=== PATIENT | female | born 1960 | race Caucasian/White ===

== ENCOUNTER 2022-10-01 09:00 | Outpatient (REF) | payer OTHER, SELFPAY ==
--- NOTE | 2022-10-01 16:03 | PFT_ITS ---
INDICATION: Dyspnea. SPIROMETRY: FEV1 to FVC of 65% with an FEV1 of 2.88 L, which is 120% predicted and FVC of 4.46 L, which is 142% predicted. There was a trend response to bronchodilators noted. To note, the [id number] decreased to 38% predicted suggesting small airways disease. Maximum voluntary ventilation 97% predicted. LUNG VOLUMES: Total lung capacity 142% predicted with a residual volume of 132% predicted. DIFFUSION CAPACITY: DLCO 93% predicted. COMPARISONS: None. INTERPRETATION: There is an obstructive ventilatory defect consistent with mild COPD. No significant response to bronchodilators noted. There is also significant evidence of small airways disease suggesting the possibility of asthma-COPD overlap syndrome. Normal maximum voluntary ventilation noted. Lung volumes do demonstrate significant air trapping and also significant hyperinflation due to the COPD. The patient has a normal diffusion capacity. No previous PFTs to compare. Clinical correlation warranted. MD MARCIA Perez/INESSA / [id number]
== END 2022-10-01 09:01 | disposition home or self-care (01) ==
LOC: HO.RESP 09:00
PROVIDERS: PCP Internal Medicine; Visit Provider Hospitalist
DX: J45.40 Moderate persistent asthma, uncomplicated (principal)
CPT/HCPCS: 94060; 94727; 94729

== ENCOUNTER 2022-10-10 13:57 | Outpatient (REF) | payer OTHER, SELFPAY ==
[2022-10-10 14:16] LABS: MANUAL DIFF FLAG NO
[2022-10-10 14:25] LABS: Basophils Percent Auto 0.6 % (0-2); Eosinophils Absolute Auto 0.4 X10*3/uL (0.0-0.4); Eosinophils Percent Auto 5.7 % (0-4); Hematocrit 39.6 % (37.0-47.0); Hemoglobin 13.5 g/dl (12.0-16.0); Imm Gran Abs Auto 0.02 X10*3/uL (0.00-0.03); Imm Gran Pct Auto 0.3 % (0.0-0.4); Lymphocytes Absolute Auto 1.9 X10*3/uL (1.2-4.9); Lymphocytes Percent Auto 30.3 % (20-40); Mean Corpuscular HGB Conc 34.1 g/dl (31.0-35.0); Mean Corpuscular Hemoglobin 31.5 pg (27.0-33.0); Mean Corpuscular Volume 92.5 fL (80.0-98.0); Mean Platelet Volume 9.3 fL (9.4-12.3); Monocytes Absolute Auto 0.4 X10*3/uL (0.1-1.2); Neutrophils Absolute Auto 3.6 x10*3/uL (2.0-8.3); Neutrophils Percent Auto 57.1 % (45-73); Platelet Count 309 X10*3/uL (160-400); Red Blood Count 4.28 X10*6/uL (4.20-5.50); Red Cell Distribution Width 12.2 % (11.0-16.0); White Blood Count 6.4 X10*3/uL (4.8-10.8)
[2022-10-10 15:06] LABS: Erythrocyte Sedimentation Rate 5 MM/HR (0-20)
[2022-10-12 14:17] LABS: Alpha 1 Anti-trypsin 131 mg/dL (83-199)
== END 2022-10-10 13:58 | disposition home or self-care (01) ==
LOC: HO.LAB 13:57
PROVIDERS: PCP Internal Medicine; Visit Provider Hospitalist
DX: J44.9 Chronic obstructive pulmonary disease, unspecified (principal); J45.40 Moderate persistent asthma, uncomplicated
CPT/HCPCS: 36415; 82103; 82785; 85025; 85652; 86003

== ENCOUNTER → 2023-01-10 14:47 | Outpatient (BNVA) | payer OTHER, SELFPAY | PROVIDERS: PCP Internal Medicine; Visit Provider Hospitalist | DX: Z13.89 Encounter for screening for other disorder (principal) ==

== ENCOUNTER 2023-07-09 09:13 | Outpatient (AMB) | payer OTHER, SELFPAY ==
--- NOTE | 2023-07-09 09:21 | MHC.OFFVIS ---
Intake Vital Signs 07/09/23 09:22 Height 5 ft 2 in Weight 135 lb 9.349 oz BMI 24.8 BP 118/70 Blood Pressure Location Lt brachial Position Sitting Pulse 76 Pulse Source Pulse Oximeter Pulse Oximetry (%) 96 Oxygen Delivery Method Room Air Intake Visit Reasons: Asthma [place] Consultant Required: No Allergies amoxicillin Allergy (Severe, Verified 07/09/23 09:25) Rash HPI HPI Comments History of Present Illness Details The patient is a 62 year-old woman with known history of asthma in addition to allergies. The patient has followed closely with a local dye line operator. Her asthma had been in good control. However during the spring season she felt worsening respiratory symptoms. About a month ago she started developing significant chest tightness and wheezing. She was not responding to her respiratory therapy. She did call for advice over we can and she was recommended to go to the ER. She ended up going to the [facility] ER. There she had a chest x-ray that was personally by me. She appeared to have some hyperinflation of the lungs in addition to slight blunting of the right recess. The patient was treated with prednisone and she felt better. She was then placed on Advair and started developing irritation of her mouth. She also developed some ulcerations. So she was switched over to Symbicort 80/4.5 and seems to be tolerating that better. Although she still has concerns. I did provide her with a spacer in the office in order for her to minimize her upper respiratory adverse effects. We also talked about other additional therapy such as singular that she had using the past which will be a steroid sparing agent hopefully allow her to decrease the amount of steroid she is currently taking. The patient has other triggers including reflux disease. She is monitoring closely her diet. She does not like to take too many medications. In addition to that she does have a postnasal drip. She does have nasal sprays at home. 10/10/2022 the patient is here for a pulmonary follow-up visit. Overall she is doing better on the Symbicort. She is also trying to use a spacer. She does not use it all the time. The patient has been exercising regularly. We did review her pulmonary function studies together. She appears to have a mild fixed obstruction suggesting uncontrolled asthma versus the progression to mild COPD. She is a lifelong nonsmoker. The patient has significant small airways disease suggesting the severity of her asthma. On previous blood work she did have some degree of eosinophilia. 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 Based on her degree of obstruction I do believe that adding a long-acting muscarinic antagonist in the morning will help her with her airway obstruction. The patient also should be taking singular. She was questioning the adverse effects. Did reassure her that is well tolerated. She will monitor for any mood changes. 01/12/2023 The patient is here for a pulmonary follow up visit. The patient is complaing of increasing cough and chest tightness. Has been feeling like this for 4-5 days. She almost went to the ED. She has been using her inhalers frequently. The patient does not have a nebulizer. She does not like to take prednisone. Denies any sick contacts. Today she is feeling a little better. Again, we talked about her significant allergies including to mold. She really would be a great candidate for Dupixent with her elevated IgE and eosinophils. i did provide her with imformation. 07/09/2023 the patient is here for pulmonary follow-up visit. The patient is feeling a lot better. Back in January she had an exacerbation or breathing. She would was treated with a course of antibiotics and she felt better. She is not having to use Symbicort every day now. She is back to his baseline. The patient is also taking the singular daily. Respiratory power she does not have any limitations or respiratory them as well. She has no x-rays or laboratories to review. Her eosinophils have been elevated before we talked about potential biologics. But at this point she does not require them. The patient will call if she has any worsening symptoms however. In the meantime her major issue is her significant arthritis. Has a hard time with her neck. She does take IgE for Motrin on a daily basis. I did encourage her not to do so talk to her primary care doctor about alternatives [facility] Medical History (Updated 07/09/23 @ 22:47 by Naeem Hanna MD) Asthma-COPD overlap syndrome Social History (Updated 06/04/22 @ 13:26 by JEAN CLAUDE Walter) Patient Tobacco Use Status: Never used Tobacco Review of Systems Const Denies fatigue Eyes Denies change in vision ENT Reports nasal congestion Card Denies chest pain Resp Denies chest congestion, Reports cough and Denies wheezing GI Reports dyspepsia and Reports heartburn Musc Reports no additional complaints Skin/Breast Denies rash Neuro Reports no additional complaints Endo Reports no additional complaints and Denies fatigue Aller/Immun Denies wheezing Physical Exam Vital Signs: Last Vital Signs Pulse 76 07/09/23 09:22 BP 118/70 07/09/23 09:22 Pulse Ox 96 07/09/23 09:22 Oxygen Delivery Method Room Air 07/09/23 09:22 BMI result Body Mass Index 24.8 Const General: comfortable HEENT Head: Yes normal to inspection Neck Neck: Yes normal visual inspection and Yes supple Chest Chest palpation & inspection: normal inspection of the chest Resp Auscultation: clear to auscultation bilaterally and no wheezes Cardio Rate: regular rate Rhythm: regular rhythm Heart sounds: S1 normal heart sound present, S2 normal heart sound present and Murmur heart sound present systolic II/ and at the base GI Inspection: Yes normal to inspection Skin General skin exam: no rashes or lesions noted Extrem General: Yes no clubbing, cyanosis or edema Assessment & Plan Assessment & Plan (1) Asthma: Code(s): J45.909 - Unspecified asthma, uncomplicated Qualifiers: Asthma complication type: uncomplicated Asthma persistence: persistent Asthma severity: severe Qualified Code(s): J45.50 - Severe persistent asthma, uncomplicated (2) GERD (gastroesophageal reflux disease): Code(s): K21.9 - Gastro-esophageal reflux disease without esophagitis Qualifiers: Esophagitis presence: without esophagitis Qualified Code(s): K21.9 - Gastro-esophageal reflux disease without esophagitis (3) Chronic allergic rhinitis: Code(s): J30.9 - Allergic rhinitis, unspecified Plan continue Symbicort 160/4.5 Nebulizer continue using a spacer continue Singulair consider starting long-acting muscarinic antagonist short-acting beta agonist as needed -Tolerates Xopenex best Will be an excellent candidate for Biologic therapy continue with reflux diet follow-up in 12 months unless she develops any new symptoms that will require an earlier evaluation Coding Level of Care Code Est Pt Level 4 (50739) Diagnoses Asthma J45.50 Asthma complication type: uncomplicated Asthma persistence: persistent Asthma severity: severe GERD (gastroesophageal reflux disease) K21.9 Esophagitis presence: without esophagitis Chronic allergic rhinitis J30.9 Time Spent (min) 18
[2023-07-09 09:22] VITALS: BP 118/70; PULSE 76; O2SAT 96; BMI 24.8
== END 2023-07-09 09:36 | disposition home or self-care (01) ==
PROVIDERS: PCP Internal Medicine; Visit Provider Hospitalist
DX: J45.50 Severe persistent asthma, uncomplicated (principal); K21.9 Gastro-esophageal reflux disease without esophagitis; J30.9 Allergic rhinitis, unspecified
CPT/HCPCS: 99214

== ENCOUNTER → 2023-07-09 09:13 | Outpatient (BNVA) | payer OTHER, SELFPAY | PROVIDERS: PCP Internal Medicine; Visit Provider Hospitalist | DX: J44.9 Chronic obstructive pulmonary disease, unspecified (principal) ==

== ENCOUNTER 2024-01-06 09:00 | Outpatient (AMB) | payer OTHER, SELFPAY ==
--- NOTE | 2024-01-06 08:38 | MHC.OFFVIS ---
Intake Vital Signs 01/06/24 09:07 Height 5 ft 2 in Weight 130 lb BMI 23.8 BP 110/64 Blood Pressure Location Rt brachial Position Sitting Pulse 81 Pulse Source Pulse Oximeter Pulse Oximetry (%) 93 Oxygen Delivery Method Room Air Intake Visit Reasons: Dyspnea, coughing, green sputum Ratoprinter Required: No Electron Gun Inspector: Electron Gun Inspector offered & declined Accompanied by: Self / Same As Patient Allergies amoxicillin Allergy (Severe, Verified 01/06/24 09:10) Rash flagyl Allergy (Severe, Uncoded 01/06/24 09:10) hives Medication List - Last Reconciled 01/06/24 by Maryam Andrade LPN budesonide-formoterol 160-4.5 mcg/actuation (Symbicort) 2 puffs inhalation BID cholecalciferol (vitamin D3) 25 mcg PO DAILY diltiazem HCl 120 mg PO DAILY levalbuterol HCl 1.25 mg (3 mL) inhalation BID levalbuterol tartrate 45 mcg/actuation 2 puffs inhalation Q6H PRN lorazepam 1 mg PO BEDTIME PRN montelukast 10 mg PO DAILY 30 days nebulizers As directed valacyclovir 1,000 mg PO DAILY PRN HPI Dyspnea, coughing, green sputum HPI Details Chary is pleasant 63 year old female, never smoker, with asthma COPD overlap syndrome, GERD and environmental allergies. At baseline, she is well controlled on symbicort, singulair and levalbuterol MDI/neb. Today she presents for a sick visit. She reports increased dyspnea with exertion, chest tightness, and productive cough with yellow to green sputum for the past 4-5 days. She has been using levalbuterol MDI multiple times per day with moderate effect. She has not had to use her nebulizer. Of note, she will be traveling out of country on Friday. [facility] Medical History (Updated 07/09/23 @ 22:47 by Naeem Hanna MD) Asthma-COPD overlap syndrome Social History (Updated 01/06/24 @ 09:12 by Maryam Andrade LPN) Patient Tobacco Use Status: Never used Tobacco Smoked in Last 30 Days: No Review of Systems Const Denies chills, Denies excessive sweating, Denies fever(s), Denies headache(s) and Denies night sweats Eyes Denies dry eyes, Denies irritation and Denies itchy eyes ENT Reports Normal hearing present, Denies headache(s), Denies nasal congestion, Denies nasal discharge, Denies post nasal drip and Denies sore throat Card Denies chest pain, Denies chest pain at rest, Denies chest pain with activity, Denies claudication, Denies leg edema, Denies dyspnea, Denies orthopnea and Denies paroxysmal nocturnal dyspnea Resp Denies chest congestion, Denies excessive phlegm production, Denies pain on inspiration, Denies pain with cough, Denies dyspnea, Denies stridor and Denies wheezing Musc Denies myalgias Neuro Reports Normal hearing present and Denies headache(s) Endo Denies excessive sweating William/Lymph Denies lymphadenopathy Aller/Immun Denies itchy eyes, Denies seasonal rhinorrhea and Denies wheezing Physical Exam Vital Signs: Last Vital Signs Pulse 81 01/06/24 09:07 BP 110/64 01/06/24 09:07 Pulse Ox 93 01/06/24 09:07 Oxygen Delivery Method Room Air 01/06/24 09:07 BMI result Body Mass Index 23.8 Const General: cooperative, healthy appearing, comfortable, no acute distress, well developed and alert Orientation/consciousness: patient oriented x3 Limitations: no limitations HEENT Head: Yes normal to inspection, Yes normocephalic and Yes atraumatic Ears: hearing grossly normal bilaterally and external ears normal Eyes General: appearance normal, both eyes and all related structures Eyelids: Yes eyelids normal Sclerae: sclerae normal EOM: EOMs intact bilaterally Neck Neck: Yes normal visual inspection and Yes no lymphadenopathy Lymphatic: no lymphadenopathy noted Chest Chest palpation & inspection: normal inspection of the chest Resp Effort & Inspection: normal respiratory effort, able to speak in complete sentences, no audible wheezes, no cough, no stridor, not tachypneic, no tripod positioning and no use of accessory muscles Auscultation: clear to auscultation bilaterally Cardio Jugular venous distension: no JVD Rate: regular rate Rhythm: regular rhythm Skin Other: warm, dry General skin exam: no rashes or lesions noted Neuro General: patient oriented x3 Cranial nerves: Yes Normal hearing present Cognition (Neuro): normal cognition Gait exam (Neuro): Normal gait present Extrem General: Yes normal to inspection, Yes capillary refill normal, Yes no clubbing, cyanosis or edema and Yes no pedal edema Psych Appearance: grossly normal and well kempt Speech and movement: Normal speech and movement present and Clear speech present Affect: normal affect Attitude: cooperative Thought process: Normal thought process present Thought content: Normal thought content present Insight: Good insight present (Psych) Judgement: Good judgement present (Psych) Assessment & Plan Assessment & Plan (1) Asthma-COPD overlap syndrome: Code(s): J44.9 - Chronic obstructive pulmonary disease, unspecified Plan Will treat bronchitic symptoms with azithromycin and recommended mucinex DM. Since patient going out of the country will give prescription for prednisone, she is aware when to use it if needed. Will refill levalbuterol MDI. All questions were answered and patient is in agreement of plan. Will follow up with Dr. Hanna for regularly scheduled appointment or sooner if needed. Medications: New azithromycin For 250 mg dose pack: take 500 mg today (day 1), then 250 mg for 4 days (days 2-5) PO 6 tabs 0RF levalbuterol tartrate 45 mcg/actuation 1 puff inhalation Q4-6H PRN 15 grams 3RF shortness of breath prednisone 40 mg (2 x 20 mg) PO DAILY 10 tabs 0RF Coding Level of Care Code Est Pt Level 3 (35120) Diagnoses Asthma-COPD overlap syndrome J44.9
[2024-01-06 09:07] VITALS: BP 110/64; PULSE 81; O2SAT 93; BMI 23.8
== END 2024-01-06 09:23 | disposition home or self-care (01) ==
PROVIDERS: PCP Internal Medicine; Visit Provider Nurse Practitioner Family
DX: J44.9 Chronic obstructive pulmonary disease, unspecified (principal)
CPT/HCPCS: 99213

== ENCOUNTER → 2024-01-06 09:00 | Outpatient (BNVA) | payer OTHER, SELFPAY | PROVIDERS: PCP Internal Medicine; Visit Provider Nurse Practitioner Family ==

== ENCOUNTER 2024-11-01 09:03 | Outpatient (AMB) | payer OTHER, SELFPAY ==
[2024-11-01 09:04] VITALS: BP 122/80; PULSE 81; O2SAT 99; BMI 24.6
--- NOTE | 2024-11-01 09:04 | A.OFFVIS_ITS ---
Vital Signs 11/01/24 09:04 Height 5 ft 2 in Weight 134 lb 7.712 oz BMI 24.6 BP 122/80 Blood Pressure Location Lt brachial Position Sitting Pulse 81 Pulse Source Doppler Pulse Oximetry (%) 99 Oxygen Delivery Method Room Air Intake Visit Reasons: Dyspnea Allergies amoxicillin Allergy (Severe, Verified 01/06/24 09:10) Rash flagyl Allergy (Severe, Uncoded 01/06/24 09:10) hives HPI Comments Details: The patient is a 63 year-old woman with known history of asthma in addition to allergies. The patient has followed closely with a local farmworker machine. Her asthma had been in good control. However during the spring season she felt worsening respiratory symptoms. About a month ago she started developing significant chest tightness and wheezing. She was not responding to her respiratory therapy. She did call for advice over we can and she was recommended to go to the ER. She ended up going to the [facility] ER. There she had a chest x-ray that was personally by me. She appeared to have some hyperinflation of the lungs in addition to slight blunting of the right recess. The patient was treated with prednisone and she felt better. She was then placed on Advair and started developing irritation of her mouth. She also developed some ulcerations. So she was switched over to Symbicort 80/4.5 and seems to be tolerating that better. Although she still has concerns. I did provide her with a spacer in the office in order for her to minimize her upper respiratory adverse effects. We also talked about other additional therapy such as singular that she had using the past which will be a steroid sparing agent hopefully allow her to decrease the amount of steroid she is currently taking. The patient has other triggers including reflux disease. She is monitoring closely her diet. She does not like to take too many medications. In addition to that she does have a postnasal drip. She does have nasal sprays at home. 10/10/2022 the patient is here for a pulmonary follow-up visit. Overall she is doing better on the Symbicort. She is also trying to use a spacer. She does not use it all the time. The patient has been exercising regularly. We did review her pulmonary function studies together. She appears to have a mild fixed obstruction suggesting uncontrolled asthma versus the progression to mild COPD. She is a lifelong nonsmoker. The patient has significant small airways disease suggesting the severity of her asthma. On previous blood work she did have some degree of eosinophilia. 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 Based on her degree of obstruction I do believe that adding a long-acting muscarinic antagonist in the morning will help her with her airway obstruction. The patient also should be taking singular. She was questioning the adverse effects. Did reassure her that is well tolerated. She will monitor for any mood changes. 01/12/2023 The patient is here for a pulmonary follow up visit. The patient is complaing of increasing cough and chest tightness. Has been feeling like this for 4-5 days. She almost went to the ED. She has been using her inhalers frequently. The patient does not have a nebulizer. She does not like to take prednisone. Denies any sick contacts. Today she is feeling a little better. Again, we talked about her significant allergies including to mold. She really would be a great candidate for Dupixent with her elevated IgE and eosinophils. i did provide her with imformation. 07/09/2023 the patient is here for pulmonary follow-up visit. The patient is feeling a lot better. Back in January she had an exacerbation or breathing. She would was treated with a course of antibiotics and she felt better. She is not having to use Symbicort every day now. She is back to his baseline. The patient is also taking the singular daily. Respiratory power she does not have any limitations or respiratory them as well. She has no x-rays or laboratories to review. Her eosinophils have been elevated before we talked about potential biologics. But at this point she does not require them. The patient will call if she has any worsening symptoms however. In the meantime her major issue is her significant arthritis. Has a hard time with her neck. She does take IgE for Motrin on a daily basis. I did encourage her not to do so talk to her primary care doctor about alternatives 11/01/2024 the patient is here for pulmonary follow-up visit have decided chest discomfort. She had a full cardiac workup without any significant findings per the report. She does have a murmur but she is aware of it. The patient also has had a full pulmonary workup. He had a CTA that ruled out blood clots. No significant findings except from some atelectasis at the bases. But right more than left. No pleural-based thickening or no evidence of any pleuritis on the CT scan. 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 She wants to come off the singular which is perfectly fine specially with all the adverse effects that are coming up at this time. She can just stop the medication at this time. Her same seem to be more dermatomal and distribution. We did look at her CT scan demonstrating significant scoliosis in bone spurs especially in the thoracolumbar area. I do believe is likely to be related to radiculopathy resulting in some pain in that area. I will request an MRI this time to better assess the thoracolumbar area and her radiculopathy disease. [facility] Medical History (Updated 11/01/24 @ 18:47 by Naeem Hanna MD) Back pain Radiculopathy Asthma-COPD overlap syndrome Social History (Updated 01/06/24 @ 09:12 by Maryam Andrade LPN) Patient Tobacco Use Status: Never used Tobacco Review of Systems Const Denies fatigue Eyes Denies change in vision ENT Reports nasal congestion Card Denies chest pain Resp Denies chest congestion, Reports cough and Denies wheezing GI Reports dyspepsia and Denies heartburn Musc Reports no additional complaints Skin/Breast Denies rash Neuro Reports no additional complaints Endo Reports no additional complaints and Denies fatigue Aller/Immun Denies wheezing Physical Exam Vital Signs: Last Vital Signs Pulse 81 11/01/24 09:04 BP 122/80 11/01/24 09:04 Pulse Ox 99 11/01/24 09:04 Oxygen Delivery Method Room Air 11/01/24 09:04 BMI result Body Mass Index 24.6 Const General: comfortable HEENT Head: Yes normal to inspection Neck Neck: Yes normal visual inspection and Yes supple Chest Chest palpation & inspection: normal inspection of the chest Resp Auscultation: clear to auscultation bilaterally and no wheezes Cardio Rate: regular rate Rhythm: regular rhythm Heart sounds: S1 normal heart sound present, S2 normal heart sound present and Murmur heart sound present systolic II/ and at the base GI Inspection: Yes normal to inspection Skin General skin exam: no rashes or lesions noted Extrem General: Yes no clubbing, cyanosis or edema Assessment & Plan Assessment & Plan (1) Asthma: Code(s): J45.909 - Unspecified asthma, uncomplicated Category: Medical Qualifiers: Asthma complication type: uncomplicated Asthma persistence: persistent Asthma severity: severe Qualified Code(s): J45.50 - Severe persistent asthma, uncomplicated (2) GERD (gastroesophageal reflux disease): Code(s): K21.9 - Gastro-esophageal reflux disease without esophagitis Category: Medical Qualifiers: Esophagitis presence: without esophagitis Qualified Code(s): K21.9 - Gastro-esophageal reflux disease without esophagitis (3) Chronic allergic rhinitis: Code(s): J30.9 - Allergic rhinitis, unspecified Category: Medical (4) Radiculopathy: Code(s): M54.10 - Radiculopathy, site unspecified Category: Medical Qualifiers: Spinal region: thoracolumbar Qualified Code(s): M54.15 - Radiculopathy, thoracolumbar region (5) Back pain: Code(s): M54.9 - Dorsalgia, unspecified Category: Medical Qualifiers: Back pain location: back pain in other location Chronicity: chronic Qualified Code(s): M54.89 - Other dorsalgia; G89.29 - Other chronic pain Plan continue Symbicort 160/4.5 Nebulizer continue using a spacer stop Singulair consider starting long-acting muscarinic antagonist short-acting beta agonist as needed -Tolerates Xopenex best MRI of thoracic/lumbar area to assess abnormal findings on CT chest and worsening symptoms continue with reflux diet follow-up in 2-3 months Orders: Orders MR thoracic spine wo/w con Today M54.10 - Radiculopathy, site unspecified, M54.9 - Dorsalgia, unspecified MR lumbar spine wo/w con Today M54.10 - Radiculopathy, site unspecified, M54.9 - Dorsalgia, unspecified Medications: Discontinued montelukast Discontinued Reason: Doctor's Order 10 mg PO DAILY 30 days 30 tabs 11RF J45.909 - Unspecified asthma, uncomplicated Coding Level of Care Code Est Pt Level 4 (56062) Diagnoses Severe persistent asthma without complication J45.50 Asthma complication type: uncomplicated Asthma persistence: persistent Asthma severity: severe Gastroesophageal reflux disease without esophagitis K21.9 Esophagitis presence: without esophagitis Chronic allergic rhinitis J30.9 Radiculopathy of thoracolumbar region M54.15 Spinal region: thoracolumbar Other chronic back pain M54.89; G89.29 Back pain location: back pain in other location Chronicity: chronic Time Spent (min) 17
== END 2024-11-01 09:37 | disposition home or self-care (01) ==
PROVIDERS: PCP Physician Assistant Medical; Visit Provider Hospitalist
DX: J45.50 Severe persistent asthma, uncomplicated (principal); K21.9 Gastro-esophageal reflux disease without esophagitis; J30.9 Allergic rhinitis, unspecified; M54.15 Radiculopathy, thoracolumbar region; M54.89 Other dorsalgia; G89.29 Other chronic pain
CPT/HCPCS: 99214

== ENCOUNTER 2024-11-10 10:49 | Outpatient (AMB) | payer OTHER, SELFPAY ==
[2024-11-10 10:59] VITALS: BP 136/80; PULSE 84; O2SAT 93; BMI 24.2
--- NOTE | 2024-11-10 10:59 | A.OFFVIS_ITS ---
Vital Signs 11/10/24 10:59 Height 5 ft 2 in Weight 132 lb 4.438 oz BMI 24.2 BP 136/80 Blood Pressure Location Rt brachial Position Sitting Pulse 84 Pulse Source Pulse Oximeter Pulse Oximetry (%) 93 Oxygen Delivery Method Room Air Intake Visit Reasons: productive cough Nc Machinist Required: No Electronic Publishing Specialist: Electronic Publishing Specialist offered & declined Accompanied by: Self / Same As Patient Allergies amoxicillin Allergy (Severe, Verified 11/10/24 11:04) Rash flagyl Allergy (Severe, Uncoded 11/10/24 11:04) hives Medication List - Last Reconciled 11/10/24 by Maryam Andrade LPN cholecalciferol (vitamin D3) 25 mcg PO DAILY diltiazem HCl CD 240 mg PO DAILY fluticasone propion-salmeterol 250-50 mcg/dose (Wixela Inhub) 1 inh inhalation BID levalbuterol HCl 1.25 mg (3 mL) inhalation BID levalbuterol tartrate 45 mcg/actuation 2 puffs inhalation Q6H PRN levalbuterol tartrate 45 mcg/actuation 1 puff inhalation Q4-6H PRN lorazepam 1 mg PO BEDTIME PRN nebulizers As directed nystatin 1 mL PO TID 14 days valacyclovir 1,000 mg PO DAILY PRN HPI Comments Details: The patient is a 63 year-old woman with known history of asthma in addition to allergies. The patient has followed closely with a local airframe and power plant mechanic. Her asthma had been in good control. However during the spring season she felt worsening respiratory symptoms. About a month ago she started developing significant chest tightness and wheezing. She was not responding to her respiratory therapy. She did call for advice over we can and she was recommended to go to the ER. She ended up going to the [facility] [place] [facility]. There she had a chest x-ray that was personally by me. She appeared to have some hyperinflation of the lungs in addition to slight blunting of the right recess. The patient was treated with prednisone and she felt better. She was then placed on Advair and started developing irritation of her mouth. She also developed some ulcerations. So she was switched over to Symbicort 80/4.5 and seems to be tolerating that better. Although she still has concerns. I did provide her with a spacer in the office in order for her to minimize her upper respiratory adverse effects. We also talked about other additional therapy such as singular that she had using the past which will be a steroid sparing agent hopefully allow her to decrease the amount of steroid she is currently taking. The patient has other triggers including reflux disease. She is monitoring closely her diet. She does not like to take too many medications. In addition to that she does have a postnasal drip. She does have nasal sprays at home. 10/10/2022 the patient is here for a pulmonary follow-up visit. Overall she is doing better on the Symbicort. She is also trying to use a spacer. She does not use it all the time. The patient has been exercising regularly. We did review her pulmonary function studies together. She appears to have a mild fixed obstruction suggesting uncontrolled asthma versus the progression to mild COPD. She is a lifelong nonsmoker. The patient has significant small airways disease suggesting the severity of her asthma. On previous blood work she did have some degree of eosinophilia. 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 Based on her degree of obstruction I do believe that adding a long-acting muscarinic antagonist in the morning will help her with her airway obstruction. The patient also should be taking singular. She was questioning the adverse effects. Did reassure her that is well tolerated. She will monitor for any mood changes. 01/12/2023 The patient is here for a pulmonary follow up visit. The patient is complaing of increasing cough and chest tightness. Has been feeling like this for 4-5 days. She almost went to the ED. She has been using her inhalers frequently. The patient does not have a nebulizer. She does not like to take prednisone. Denies any sick contacts. Today she is feeling a little better. Again, we talked about her significant allergies including to mold. She really would be a great candidate for Dupixent with her elevated IgE and eosinophils. i did provide her with imformation. 07/09/2023 the patient is here for pulmonary follow-up visit. The patient is feeling a lot better. Back in January she had an exacerbation or breathing. She would was treated with a course of antibiotics and she felt better. She is not having to use Symbicort every day now. She is back to his baseline. The patient is also taking the singular daily. Respiratory power she does not have any limitations or respiratory them as well. She has no x-rays or laboratories to review. Her eosinophils have been elevated before we talked about potential biologics. But at this point she does not require them. The patient will call if she has any worsening symptoms however. In the meantime her major issue is her significant arthritis. Has a hard time with her neck. She does take IgE for Motrin on a daily basis. I did encourage her not to do so talk to her primary care doctor about alternatives 11/01/2024 the patient is here for pulmonary follow-up visit have decided chest discomfort. She had a full cardiac workup without any significant findings per the report. She does have a murmur but she is aware of it. The patient also has had a full pulmonary workup. He had a CTA that ruled out blood clots. No significant findings except from some atelectasis at the bases. But right more than left. No pleural-based thickening or no evidence of any pleuritis on the CT scan. 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 She wants to come off the singular which is perfectly fine specially with all the adverse effects that are coming up at this time. She can just stop the medication at this time. Her same seem to be more dermatomal and distribution. We did look at her CT scan demonstrating significant scoliosis in bone spurs especially in the thoracolumbar area. I do believe is likely to be related to radiculopathy resulting in some pain in that area. I will request an MRI this time to better assess the thoracolumbar area and her radiculopathy disease. 11/10/2024 the patient is here for sick visit. She went to [place] she was exposed to sick contact. Sister had sick with sinusitis. Her sister is not taking antibiotics. When she got back she started developing a sore throat then after that developed productive cough with yellowish-green phlegm. Denies any chest tightness or wheezing. She is waiting for the MRI to assess her ongoing back and chest discomfort. In the meantime will send her antibiotics and also a cough suppressant therapy. If the patient is not feeling better she will call for stronger antibiotic over the weekend. [facility] Medical History (Updated 11/10/24 @ 20:08 by Naeem Hanna MD) Back pain Radiculopathy Asthma-COPD overlap syndrome Social History (Updated 01/06/24 @ 09:12 by Maryam Andrade LPN) Patient Tobacco Use Status: Never used Tobacco Review of Systems Const Reports fatigue and Denies fever(s) Eyes Denies change in vision ENT Reports nasal congestion, Reports nasal discharge and Reports nasal obstruction Card Denies chest pain Resp Reports chest congestion, Reports cough and Denies wheezing GI Reports dyspepsia and Denies heartburn Musc Reports no additional complaints Skin/Breast Denies rash Neuro Reports no additional complaints Endo Reports no additional complaints and Reports fatigue Aller/Immun Denies wheezing Physical Exam Vital Signs: Last Vital Signs Pulse 84 11/10/24 10:59 BP 136/80 11/10/24 10:59 Pulse Ox 93 11/10/24 10:59 Oxygen Delivery Method Room Air 11/10/24 10:59 BMI result Body Mass Index 24.2 Const General: comfortable HEENT Head: Yes normal to inspection Neck Neck: Yes normal visual inspection and Yes supple Chest Chest palpation & inspection: normal inspection of the chest Resp Effort & Inspection: normal respiratory effort Auscultation: no wheezes and diminished lung sounds Cardio Rate: regular rate Rhythm: regular rhythm Heart sounds: S1 normal heart sound present, S2 normal heart sound present and Murmur heart sound present systolic II/ and at the base GI Inspection: Yes normal to inspection Skin General skin exam: no rashes or lesions noted Extrem General: Yes no clubbing, cyanosis or edema Assessment & Plan Assessment & Plan (1) Asthma: Code(s): J45.909 - Unspecified asthma, uncomplicated Category: Medical Qualifiers: Asthma complication type: uncomplicated Asthma persistence: persistent Asthma severity: severe Qualified Code(s): J45.50 - Severe persistent asthma, uncomplicated (2) GERD (gastroesophageal reflux disease): Code(s): K21.9 - Gastro-esophageal reflux disease without esophagitis Category: Medical Qualifiers: Esophagitis presence: without esophagitis Qualified Code(s): K21.9 - Gastro-esophageal reflux disease without esophagitis (3) Chronic allergic rhinitis: Code(s): J30.9 - Allergic rhinitis, unspecified Category: Medical (4) Radiculopathy: Code(s): M54.10 - Radiculopathy, site unspecified Category: Medical Qualifiers: Spinal region: thoracolumbar Qualified Code(s): M54.15 - Radiculopathy, thoracolumbar region (5) Back pain: Code(s): M54.9 - Dorsalgia, unspecified Category: Medical Qualifiers: Back pain location: back pain in other location Chronicity: chronic Qualified Code(s): M54.89 - Other dorsalgia; G89.29 - Other chronic pain (6) Bronchitis: Code(s): J40 - Bronchitis, not specified as acute or chronic Category: Medical Plan Start Zpack cough medicine Flucinazole as needed for candidiasis while on abx continue Wixela Nebulizer continue using a spacer stop Singulair consider starting long-acting muscarinic antagonist short-acting beta agonist as needed -Tolerates Xopenex best MRI of thoracic/lumbar area to assess abnormal findings on CT chest and worsening symptoms continue with reflux diet follow-up in 2-3 months Medications: New azithromycin 500 mg PO DAILY 5 tabs 0RF 5 days fluconazole 100 mg PO DAILY 10 tabs 0RF 10 days codeine-guaifenesin 10-100 mg/5 mL 10 mL PO Q6H PRN 300 mL 0RF cough 10 days Coding Level of Care Code Est Pt Level 4 (04243) Diagnoses Severe persistent asthma without complication J45.50 Asthma complication type: uncomplicated Asthma persistence: persistent Asthma severity: severe Gastroesophageal reflux disease without esophagitis K21.9 Esophagitis presence: without esophagitis Chronic allergic rhinitis J30.9 Radiculopathy of thoracolumbar region M54.15 Spinal region: thoracolumbar Other chronic back pain M54.89; G89.29 Back pain location: back pain in other location Chronicity: chronic Bronchitis J40 Time Spent (min) 16
== END 2024-11-10 11:22 | disposition home or self-care (01) ==
PROVIDERS: PCP Physician Assistant Medical; Visit Provider Hospitalist
DX: J45.50 Severe persistent asthma, uncomplicated (principal); K21.9 Gastro-esophageal reflux disease without esophagitis; J30.9 Allergic rhinitis, unspecified; M54.15 Radiculopathy, thoracolumbar region; M54.89 Other dorsalgia; G89.29 Other chronic pain; J40 Bronchitis, not specified as acute or chronic
CPT/HCPCS: 99214

== ENCOUNTER → 2024-11-27 09:53 | Outpatient (BNV) | payer OTHER, SELFPAY | PROVIDERS: PCP Physician Assistant Medical; Visit Provider Radiology Diagnostic Radiology | DX: M51.369 Other intervertebral disc degeneration, lumbar region without mention of lumbar back pain or lower extremity pain (principal); M25.78 Osteophyte, vertebrae | CPT/HCPCS: 72146; 72148 ==

== ENCOUNTER 2024-11-27 09:54 | Outpatient (REF) | payer OTHER, SELFPAY ==
--- NOTE | ~2024-11-27 | MR_ITS ---
CLINICAL HISTORY: M54.89 - Other dorsalgia MRI thoracic spine without contrast Comparison: None Findings: Multilevel osteophytosis without canal stenosis. Partial fusion T10-11 vertebral bodies. Slight retrolisthesis T11-12, likely chronic. Posterior alignment otherwise unremarkable. No acute bony signal abnormalities noted. Thoracic cord normal in course and caliber. No internal cord signal abnormality. Impression: Multilevel mild osteophytosis No significant canal stenosis This document has been electronically signed by: Yandel Chan MD on 11/30/2024 20:13:16
--- NOTE | ~2024-11-27 | MR_ITS ---
CLINICAL HISTORY: M54.89 - Other dorsalgia MRI lumbar spine without contrast Comparison: None Findings: L5-S1 facet hypertrophy, disc bulge and osteophytosis. Mild canal stenosis and left neural foraminal narrowing. L4-5 facet hypertrophy, disc bulge and osteophytosis. Mild spinal stenosis noted. L3-4 facet hypertrophy and osteophytosis. Mild canal stenosis and neural foraminal narrowing. Reactive endplate changes at this level. L2-3 facet hypertrophy and osteophytosis. No canal stenosis identified. Facet hypertrophy and osteophytosis in remaining visualized levels. No spinal canal or neural foraminal narrowing. No acute bony signal abnormalities identified. Posterior bony alignment is normal. Impression: Multilevel degenerative change as above This document has been electronically signed by: Yandel Chan MD on 11/30/2024 20:13:14
== END 2024-11-27 09:55 | disposition home or self-care (01) ==
LOC: HO.MRI 09:54
PROVIDERS: PCP Physician Assistant Medical; Visit Provider Hospitalist
DX: M54.9 Dorsalgia, unspecified (principal); M54.16 Radiculopathy, lumbar region; G89.29 Other chronic pain
CPT/HCPCS: 72146; 72148

== ENCOUNTER 2025-01-25 09:18 | Outpatient (AMB) | payer OTHER, SELFPAY ==
[2025-01-25 09:20] VITALS: BP 120/78; PULSE 69; O2SAT 97; BMI 25.0
--- NOTE | 2025-01-25 09:20 | MHC.OFFVIS ---
Vital Signs 01/25/25 09:20 Height 5 ft 2 in Weight 136 lb 10.986 oz BMI 25.0 BP 120/78 Blood Pressure Location Rt brachial Position Sitting Pulse 69 Pulse Source Pulse Oximeter Pulse Oximetry (%) 97 Oxygen Delivery Method Room Air Intake Visit Reasons: Dyspnea Allergies amoxicillin Allergy (Severe, Verified 01/25/25 09:24) Rash flagyl Allergy (Severe, Uncoded 01/25/25 09:24) hives HPI Comments Details: The patient is a 64 year-old woman with known history of asthma in addition to allergies. The patient has followed closely with a local overlock sleeve setter. Her asthma had been in good control. However during the spring season she felt worsening respiratory symptoms. About a month ago she started developing significant chest tightness and wheezing. She was not responding to her respiratory therapy. She did call for advice over we can and she was recommended to go to the ER. She ended up going to the [facility] ER. There she had a chest x-ray that was personally by me. She appeared to have some hyperinflation of the lungs in addition to slight blunting of the right recess. The patient was treated with prednisone and she felt better. She was then placed on Advair and started developing irritation of her mouth. She also developed some ulcerations. So she was switched over to Symbicort 80/4.5 and seems to be tolerating that better. Although she still has concerns. I did provide her with a spacer in the office in order for her to minimize her upper respiratory adverse effects. We also talked about other additional therapy such as singular that she had using the past which will be a steroid sparing agent hopefully allow her to decrease the amount of steroid she is currently taking. The patient has other triggers including reflux disease. She is monitoring closely her diet. She does not like to take too many medications. In addition to that she does have a postnasal drip. She does have nasal sprays at home. 10/10/2022 the patient is here for a pulmonary follow-up visit. Overall she is doing better on the Symbicort. She is also trying to use a spacer. She does not use it all the time. The patient has been exercising regularly. We did review her pulmonary function studies together. She appears to have a mild fixed obstruction suggesting uncontrolled asthma versus the progression to mild COPD. She is a lifelong nonsmoker. The patient has significant small airways disease suggesting the severity of her asthma. On previous blood work she did have some degree of eosinophilia. 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 Based on her degree of obstruction I do believe that adding a long-acting muscarinic antagonist in the morning will help her with her airway obstruction. The patient also should be taking singular. She was questioning the adverse effects. Did reassure her that is well tolerated. She will monitor for any mood changes. 01/12/2023 The patient is here for a pulmonary follow up visit. The patient is complaing of increasing cough and chest tightness. Has been feeling like this for 4-5 days. She almost went to the ED. She has been using her inhalers frequently. The patient does not have a nebulizer. She does not like to take prednisone. Denies any sick contacts. Today she is feeling a little better. Again, we talked about her significant allergies including to mold. She really would be a great candidate for Dupixent with her elevated IgE and eosinophils. i did provide her with imformation. 07/09/2023 the patient is here for pulmonary follow-up visit. The patient is feeling a lot better. Back in January she had an exacerbation or breathing. She would was treated with a course of antibiotics and she felt better. She is not having to use Symbicort every day now. She is back to his baseline. The patient is also taking the singular daily. Respiratory power she does not have any limitations or respiratory them as well. She has no x-rays or laboratories to review. Her eosinophils have been elevated before we talked about potential biologics. But at this point she does not require them. The patient will call if she has any worsening symptoms however. In the meantime her major issue is her significant arthritis. Has a hard time with her neck. She does take IgE for Motrin on a daily basis. I did encourage her not to do so talk to her primary care doctor about alternatives 11/01/2024 the patient is here for pulmonary follow-up visit have decided chest discomfort. She had a full cardiac workup without any significant findings per the report. She does have a murmur but she is aware of it. The patient also has had a full pulmonary workup. He had a CTA that ruled out blood clots. No significant findings except from some atelectasis at the bases. But right more than left. No pleural-based thickening or no evidence of any pleuritis on the CT scan. 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 She wants to come off the singular which is perfectly fine specially with all the adverse effects that are coming up at this time. She can just stop the medication at this time. Her same seem to be more dermatomal and distribution. We did look at her CT scan demonstrating significant scoliosis in bone spurs especially in the thoracolumbar area. I do believe is likely to be related to radiculopathy resulting in some pain in that area. I will request an MRI this time to better assess the thoracolumbar area and her radiculopathy disease. 11/10/2024 the patient is here for sick visit. She went to [place] she was exposed to sick contact. Sister had sick with sinusitis. Her sister is not taking antibiotics. When she got back she started developing a sore throat then after that developed productive cough with yellowish-green phlegm. Denies any chest tightness or wheezing. She is waiting for the MRI to assess her ongoing back and chest discomfort. In the meantime will send her antibiotics and also a cough suppressant therapy. If the patient is not feeling better she will call for stronger antibiotic over the weekend. 01/25/2025 the patient is here for a pulmonary follow-up visit. The patient overall still complaining of the episodic left-sided chest discomfort. In this case is pleuritic in nature. Moderate to severe. She has a hard time breathing when it happens. She thinks is related to her heart. She did have a cardiac workup and will be following up with Cardiology. She did have an MRI of the thorax and also the lumbar spine. She does have evidence of scoliosis and some degenerative disease. May be resulting in some degree of radicular pain to explain her symptoms. Although she does not feel right now. Also need to consider underlying connective tissue diseases. Will go ahead and have her get blood work at this time. I did have her consider trying Plaquenil as a trial to see if this provides anti-inflammatory effect and she can take this along with her Celebrex. If the patient has any issues she will call. She is going to follow with [facility] Will go ahead and follow-up in 4 months if she has any issues prior to that she will call for an earlier assessment. [facility] Medical History (Updated 01/25/25 @ 09:43 by Naeem Hanna MD) Pleuritic chest pain Back pain Radiculopathy Asthma-COPD overlap syndrome Social History Patient Tobacco Use Status: Never used Tobacco Review of Systems Const Reports fatigue and Denies fever(s) Eyes Denies change in vision ENT Reports nasal congestion, Reports nasal discharge and Reports nasal obstruction Card Reports chest pain Resp Reports cough, Reports pain on inspiration, Reports pain with cough and Denies wheezing GI Reports dyspepsia and Denies heartburn Musc Reports no additional complaints Skin/Breast Denies rash Neuro Reports no additional complaints Endo Reports no additional complaints and Reports fatigue Aller/Immun Denies wheezing Physical Exam Vital Signs: Last Vital Signs Pulse 69 01/25/25 09:20 BP 120/78 01/25/25 09:20 Pulse Ox 97 01/25/25 09:20 Oxygen Delivery Method Room Air 01/25/25 09:20 BMI result Body Mass Index 25.0 Const General: comfortable HEENT Head: Yes normal to inspection Neck Neck: Yes normal visual inspection and Yes supple Chest Chest palpation & inspection: normal inspection of the chest Resp Effort & Inspection: normal respiratory effort Auscultation: no wheezes and diminished lung sounds Cardio Rate: regular rate Rhythm: regular rhythm Heart sounds: S1 normal heart sound present, S2 normal heart sound present and Murmur heart sound present systolic II/ and at the base GI Inspection: Yes normal to inspection Skin General skin exam: no rashes or lesions noted Extrem General: Yes no clubbing, cyanosis or edema Assessment & Plan Assessment & Plan (1) Asthma: Code(s): J45.909 - Unspecified asthma, uncomplicated Category: Medical Qualifiers: Asthma complication type: uncomplicated Asthma persistence: persistent Asthma severity: severe Qualified Code(s): J45.50 - Severe persistent asthma, uncomplicated (2) GERD (gastroesophageal reflux disease): Code(s): K21.9 - Gastro-esophageal reflux disease without esophagitis Category: Medical Qualifiers: Esophagitis presence: without esophagitis Qualified Code(s): K21.9 - Gastro-esophageal reflux disease without esophagitis (3) Chronic allergic rhinitis: Code(s): J30.9 - Allergic rhinitis, unspecified Category: Medical (4) Radiculopathy: Code(s): M54.10 - Radiculopathy, site unspecified Category: Medical Qualifiers: Spinal region: thoracolumbar Qualified Code(s): M54.15 - Radiculopathy, thoracolumbar region (5) Back pain: Code(s): M54.9 - Dorsalgia, unspecified Category: Medical Qualifiers: Back pain location: back pain in other location Chronicity: chronic Qualified Code(s): M54.89 - Other dorsalgia; G89.29 - Other chronic pain (6) Bronchitis: Code(s): J40 - Bronchitis, not specified as acute or chronic Category: Medical (7) Pleuritic chest pain: Code(s): R07.81 - Pleurodynia Category: Medical Plan continue Wixela Nebulizer continue using a spacer start trial of PLaquenil Bloodwork short-acting beta agonist as needed -Tolerates Xopenex best MRI of thoracic/lumbar area with abnormal findings, following up with [facility] continue with reflux diet follow-up in 4 months Orders: Orders Cyclic Citrullinated Peptide Today R07.81 - Pleurodynia Anti DNA DS Antibody Today R07.81 - Pleurodynia WESLEY Reflex Titer and Pattern Today R07.81 - Pleurodynia Erythrocyte Sedimentation Rate Today R07.81 - Pleurodynia Scleroderma 70 Antibody Today R07.81 - Pleurodynia D Dimer High Sensitivity Today R07.81 - Pleurodynia Complete Blood Count Auto Diff Today R07.81 - Pleurodynia Troponin-I High Sensitivity Today R07.81 - Pleurodynia Basic Metabolic Panel Today R07.81 - Pleurodynia Medications: New hydroxychloroquine 200 mg PO DAILY 30 tabs 4RF 30 days Coding Level of Care Code Est Pt Level 4 (86035) Complex EM visit Add On G2211 Diagnoses Severe persistent asthma without complication J45.50 Asthma complication type: uncomplicated Asthma persistence: persistent Asthma severity: severe Gastroesophageal reflux disease without esophagitis K21.9 Esophagitis presence: without esophagitis Chronic allergic rhinitis J30.9 Radiculopathy of thoracolumbar region M54.15 Spinal region: thoracolumbar Other chronic back pain M54.89; G89.29 Back pain location: back pain in other location Chronicity: chronic Bronchitis J40 Pleuritic chest pain R07.81 Time Spent (min) 17
--- OUTSIDE RECORDS SUMMARY | 2025-01-25 10:14 | XMS_ITS | Clinical Summary ---
Author Organization [place] [facility] [employer] Address [address] [place] [address] Phone Care Team Providers Care Consulting Analyst Name Role Phone Andree Lindquist Primary Care Provider [phone] Allergies Active Allergy Reactions Criticality Noted Date Comments Albuterol 09/23/2024 Changed to xopenex because of SVT Metronidazole 09/23/2024 Hives/Urticaria Other 09/23/2024 P phenylene diamine positive patch Topical/generalized Penicillins Medium 09/23/2024 Hives/Urticaria OK to use 3rd or 4th generation cephalosporins, carbapenems or monobactams when appropriae per Dr Arnold Salvador A & I Sulfamethoxazole-Trimethopr im 09/23/2024 Rash/Dermatitis Theophylline 09/23/2024 Medications cholecalciferol , vitamin D3, (VITAMIN D3 ORAL) Take 1 Tablet by mouth daily. - Oral Active fluticasone propion-salmete roL (ADVAIR DISKUS) 100-50 mcg/dose diskus inhaler Inhale 1 Puff into the lungs 2 times daily. - Inhalation Active hydrocortisone valerate (WEST-TAYLOR) 0.2 % ointment Apply to affected areas on body 2 times a day for 7 days. Avoid face and groin Active levalbuterol (XOPENEX HFA) 45 mcg/actuation inhaler : Inhale 1-2 Puffs into the lungs every 4 hours as needed for Wheezing, Shortness of Breath or Cough. - Inhalation Active LORazepam (ATIVAN) 1 mg tablet Take 1 Tablet by mouth as needed. - Oral Active montelukast (SINGULAIR) 10 mg tablet Take 1 Tablet by mouth at bedtime. - Oral Active pantoprazole (PROTONIX) 20 mg EC tablet Take 1 Tablet by mouth daily. - Oral Active dilTIAZem CD (CARDIZEM CD) 240 mg 24 hr capsule Take 1 capsule (240 mg total) by mouth 1 (one) time each day. 90 each 3 Active Active Problems Problem Noted Date Diagnosed Date Acute bronchitis 09/23/2024 Allergic rhinitis 09/23/2024 Asthma, mild persistent 09/23/2024 Hypertension 09/23/2024 Intercostal pain 09/23/2024 Palpitations 09/23/2024 Precordial pain 09/23/2024 PVC's (premature ventricular contractions) 09/23 SVT (supraventricular tachycardia) 09/23/2024 Encounters Date Type Department Care Team Description 11/18/2024 Telephone [facility] Associates [facility] [address] [place] [address] Johnnie Newell MD Med Refill from Last 3 Months Surgical History Surgery Date Site/Laterality Comments FOOT SURGERY 05/07/2017 PROCEDURE: HISTORICAL FOOT SURGERY Medical History Medical History Date Comments Allergic rhinitis 11/08/2019 DX:Allergic rh initis Asthma, mild persistent 11/08/2019 DX:Asthm a, mild persistent Hypertension 11/08/2019 DX:Hypertension Social History Tobacco Use Types Packs/Day Years Used Date Smoking Tobacco: Never Smokeless Tobacco: Never Alcohol Use Standard Drinks/Week Comments Yes 0 (1 standard drink = 0.6 oz pur e alcohol) Comments Unknown Sex and Gender Information Value Date Recorded Sex Assigned at Not on file Legal Sex Female 10:19 PM EST Gender Identity Not on file Sexual Orientation Not on file Obstetrics History Last Filed Vital Signs Vital Sign Reading Time Taken Comments Blood Pressure 146/98 09/09/2024 3:11 PM EDT Sit ting L Arm Pulse 85 09/09/2024 3:11 PM EDT Temperature - - Respiratory Rate - - Oxygen Saturation - - Inhaled Oxygen Concentration - - Weight 60.8 kg (134 lb) 09/09/2024 3:11 PM EDT Height 158.8 cm (5' 2.5 ) 09/09/2024 3:11 PM EDT Body Mass Index 24.12 09/09/2024 3:11 PM EDT Plan of Treatment Upcoming Encounters Date Type Department Care Team (Late st Contact Info) Description 01/25/2025 1:00 PM EST Office Visit [facility] Cardiology [facility] [address] [place] [id number] Johnnie Newell MD [address] [place] [address] DRIVE,[facility] [address] [place] [address] Health Maintenance Due Date Last Done Comments DTaP,Tdap,and Td Vaccines (1 - Tdap) 1980 Pneumococcal Vaccine: 50+ Years (1 of 2 - PCV) 1980 Pneumococcal Vaccine: Pediatrics (0 to 5 Years) and At-Risk Patients (6 to 64 Years) (1 of 2 - PCV) 1980 Cervical Cancer Screening: P ap Smear 1982 Zoster Vaccines (1 of 2) 2011 RSV Immunization Patients 60 + Years Old (1 - Risk 60-74 years 1-dose series) 2021 Cholesterol Screening (Lipid Panel) 11/02/2022 Colorectal Cancer Screening: Colonoscopy 11/02/2022 Depression Screening 11/02/2022 HIV Screening 11/02/2022 Hepatitis C Screening 11/02/2022 Social Influencers of Health Screening 11/02/2022 Breast Cancer Screening 07/09/2024 07/09/20, 05/14/2021 COVID-19 Vaccine ( - 2023-2 5 season) 2024 Influenza Vaccine (#1) 2024 Hypertension/CHF/CAD Annual BMP Blood Test 09/23/2024 HIB Vaccines Aged Out No longer eligi ble based on patient's age to complete this topic HPV Vaccines Aged Out No longer eligi ble based on patient's age to complete this topic Hepatitis A Vaccines Aged Out No long er eligible based on patient's age to complete this topic Hepatitis B Vaccines Aged Out No long er eligible based on patient's age to complete this topic IPV Vaccines Aged Out No longer eligi ble based on patient's age to complete this topic MMR Vaccines Aged Out No longer eligi ble based on patient's age to complete this topic Meningococcal ACWY Vaccine Aged Out N o longer eligible based on patient's age to complete this topic Meningococcal B Vacine Aged Out No lo nger eligible based on patient's age to complete this topic RSV Immunization Patients Under 20 months Aged Out No longer eligible b ased on patient's age to complete this topic Varicella Vaccines Aged Out No longer eligible based on patient's age to complete this topic Procedures Procedure Name Priority Date/Time Associated Diagnosis Comments MICHAEL SCREENING DIGITAL Routine 07/09/2022 12:44 PM EDT Encounter for screening mammogram for malignant neoplasm of breast from Last 3 Months or Most Recently Relevant to Health Maintenance Results * MICHAEL SCREENING DIGITAL (07/09/2022 12:44 PM EDT) Anatomical Region Laterality Modality Mammography 07/09/2022 9:12 AM EDT Narrative 07/09/2022 12:[address] [facility] Diagnostic Imaging Department [address] [place] [address] Patient: ??BOLIVAR TRUJILLO ?/Age/Sex: 1960 - 61 - F Unit#: ??[id number] ? Location/Status: ??SPDIMAM/REG CLI ? Mnemonic/Ordering Site: ??DIGSC/SPMAM Ordering Physician: ??RAQUEL BRUMFIELD MD Michael Screening Digital - 07/09/22947 EXAM: Michael Screening Digital EXAM DATE AND TIME: 07/09/2022 9:48 AM HISTORY: ??Screening. Left breast biopsy in 1981, pathology benign. COMPARISON: ??05/14/21, 08/18/17, 08/23/14 TECHNIQUE: CC and MLO views of both breasts were obtained using full field digital mammography. Bilateral digital breast tomosynthesis was performed in the MLO projection. Computer aided detection with the [employer] 7.2-H was employed. TISSUE DENSITY: c. The breasts are heterogeneously dense, which may obscure small masses. FINDINGS: No suspicious masses, grouped microcalcifications, or areas of architectural distortion are seen. Benign rim calcifications are again seen. Vascular calcification is present. The skin is unremarkable. IMPRESSION: Stable mammographic appearance of the breasts. ??No evidence of malignancy is seen. A negative mammogram in the presence of a clinically suspicious palpable abnormality does not preclude the possibility of malignancy or alter the indications for biopsy. BI-RADS: ??Category 2: Benign RECOMMENDATION(S): 1: Routine screening mammogram BILATERAL in 1 year. 55809, 87644 3342F, 7025F Dictating Physician: ??LAVERNE DENNIS MD Electronically Signed by: ??LAVERNE DENNIS MD Dic Date/Time: ??07/09/22 1243 Sign date/Time: ??07/09/22 1244 Procedure Note Laverne Dennis MD - 11/20/2022 [facility] Diagnostic Imaging Department [address] [place], [place] [id number] Patient: TODDBOLIVARO.B./Age/Sex: 1960 - 61 - F Unit#: [id number] Location/Status: [facility]/REG CLI Mnemonic/Ordering Site: [facility] Ordering Physician: RAQUEL BRUMFIELD MD [facility] Screening Digital - 07/09/22 - 947 EXAM: [facility] Screening Digital EXAM DATE AND TIME: 07/09/2022 9:48 AM HISTORY: Screening. Left breast biopsy in 1981, pathology benign. COMPARISON: 05/14/21, 08/18/17, 08/23/14 TECHNIQUE: CC and MLO views of both breasts were obtained using fullfield digital mammography. Bilateral digital breast tomosynthesis was performedin the MLO projection. Computer aided detection with the [employer] employed. TISSUE DENSITY: c. The breasts are heterogeneously dense, which mayobscure small masses. FINDINGS: No suspicious masses, grouped microcalcifications, or areas ofarchitectural distortion are seen. Benign rim calcifications are again seen. Vascular calcification is present. The skin is unremarkable. IMPRESSION: Stable mammographic appearance of the breasts. No evidence of malignancyis seen. A negative mammogram in the presence of a clinically suspicious palpable abnormality does not preclude the possibility of malignancy or alter the indications for biopsy. BI-RADS: Category 2: Benign RECOMMENDATION(S): 1: Routine screening mammogram BILATERAL in 1 year. 96398, 04960 3342F, 7025F Dictating Physician: LAVERNE DENNIS MD Electronically Signed by: LAVERNE DENNIS MD Dic Date/Time: 07/09/22 1243 Sign date/Time: 07/09/22 1244 Raquel Hylton MD IMG BI PROCEDURES Final Result from Last 3 Months or Most Recently Relevant to Health Maintenance Insurance [employer] Care Teams Consulting Analyst Relationship Specialty Start Date End Date Andree Lindquist PA [address] [facility] [address] [place] [address] PCP - General 06/07/24
== END 2025-01-25 09:46 | disposition home or self-care (01) ==
PROVIDERS: PCP Physician Assistant Medical; Visit Provider Hospitalist
DX: J45.50 Severe persistent asthma, uncomplicated (principal); K21.9 Gastro-esophageal reflux disease without esophagitis; J30.9 Allergic rhinitis, unspecified; M54.15 Radiculopathy, thoracolumbar region; M54.89 Other dorsalgia; G89.29 Other chronic pain; J40 Bronchitis, not specified as acute or chronic; R07.81 Pleurodynia
CPT/HCPCS: 99214

== ENCOUNTER 2025-01-25 09:18 | Outpatient (REF) | payer OTHER, SELFPAY ==
[2025-01-25 10:23] LABS: MANUAL DIFF FLAG NO
[2025-01-25 10:54] LABS: Basophils Percent Auto 0.8 % (0-2); Eosinophils Absolute Auto 0.3 X10*3/uL (0.0-0.4); Eosinophils Percent Auto 5.3 % (0-4); Hematocrit 38.6 % (37.0-47.0); Hemoglobin 12.7 g/dl (12.0-16.0); Imm Gran Abs Auto 0.02 X10*3/uL (0.00-0.03); Imm Gran Pct Auto 0.4 % (0.0-0.4); Lymphocytes Absolute Auto 1.5 X10*3/uL (1.2-4.9); Lymphocytes Percent Auto 30.2 % (20-40); Mean Corpuscular HGB Conc 32.9 g/dl (31.0-35.0); Mean Corpuscular Hemoglobin 31.1 pg (27.0-33.0); Mean Corpuscular Volume 94.4 fL (80.0-98.0); Mean Platelet Volume 9.8 fL (9.4-12.3); Monocytes Absolute Auto 0.4 X10*3/uL (0.1-1.2); Monocytes Percent Auto 8.1 % (2-11); Neutrophils Absolute Auto 2.7 x10*3/uL (2.0-8.3); Neutrophils Percent Auto 55.2 % (45-73); Platelet Count 309 X10*3/uL (160-400); Red Blood Count 4.09 X10*6/uL (4.20-5.50); Red Cell Distribution Width 12.8 % (11.0-16.0); White Blood Count 4.9 X10*3/uL (4.8-10.8)
[2025-01-25 11:05] LABS: D Dimer High Sensitivity < 150 NG/ML
--- OUTSIDE RECORDS SUMMARY | 2025-01-25 11:26 | XMS_ITS | Clinical Summary ---
Author Organization [facility] Address [address] [place] [address] Phone Care Team Providers Care Truck Operator Name Role Phone Andree Lindquist Primary Care Provider [phone] [phone] Allergies Active Allergy Reactions Criticality Noted Date [...] Type Department Care Team Description 11/18/2024 Telephone [facility] Cardiology Associates [facility] [address] [place] [address] Johnnie Newell MD Med Refill [...] Description 01/25/2025 1:00 PM EST Office Visit [facility] Cardiology [facility] [address] [place] [phone] Johnnie Newell MD [address] [place] [address] DRIVE,[facility] [address] [place] [address] Health Maintenance Due Date Last Done Comments [...] AM EDT Narrative 07/09/2022 12:44 PM EDT [facility] Diagnostic Imaging Department [address] [place] [id number] Patient: ??BOLIVAR TRUJILLO ?/Age/Sex: 1960 - 61 - F Unit#: ??[id number] ? Location/Status: ??SPDIMAM/REG CLI ? Mnemonic/Ordering Site: [...] MLO projection. Computer aided detection with the [employer] 7.2-H was employed. TISSUE DENSITY: c. The [...] Routine screening mammogram BILATERAL in 1 year. [address]53[address], 36221 3342F, 7025F Dictating Physician: ??LAVERNE DENNIS MD Electronically Signed by: ??LAVERNE DENNIS MD Dic Date/Time: ??07/09/22 1243 Sign date/Time: ??07/09/22 1244 Procedure Note Laverne Dennis MD - 11/20/2022 [facility] Diagnostic Imaging Department [address] [place], [place] [id number] Patient: TODDBOLIVARO.B./Age/Sex: 1960 - 61 - F Unit#: [id number] Location/Status: [facility]/REG CLI Mnemonic/Ordering Site: [facility] Ordering Physician: RAQUEL BRUMFIELD MD [facility] Screening Digital - 07/09/22 - 947 EXAM: [facility] Screening Digital EXAM DATE AND TIME: 07/09/2022 9:48 AM HISTORY: Screening. Left breast biopsy in 1981, pathology benign. COMPARISON: 05/14/21, 08/18/17, 08/23/14 TECHNIQUE: CC and MLO views of both breasts were obtained using fullfield digital mammography. Bilateral digital breast tomosynthesis was performedin the MLO projection. Computer aided detection with the [employer] employed. TISSUE DENSITY: c. The breasts are [...] Routine screening mammogram BILATERAL in 1 year. 46235, 58017 3342F, 7025F Dictating Physician: LAVERNE DENNIS MD Electronically Signed by: LAVERNE DENNIS MD Dic Date/Time: 07/09/22 1243 Sign date/Time: 07/09/22 1244 Raquel Hylton MD IMG BI PROCEDURES Final Result from Last 3 Months or Most Recently Relevant to Health Maintenance Insurance [employer] Care Teams Truck Operator Relationship Specialty Start Date End Date Andree Lindquist PA [address] [facility] [address] [place] [address] PCP - General 06/07/24
[2025-01-25 11:35] LABS: Anion Gap 11 (12-20); Blood Urea Nitrogen 14 mg/dL (9-16); Calcium 9.4 mg/dL (8.4-10.2); Carbon Dioxide 25 mmol/L (22-29); Chloride 108 mmol/L (96-108); Estimated Glomerular Filt Rate > 60; Glucose Random 110 mg/dL (60-115); Potassium 3.9 mmol/L (3.3-5.1); Sodium 140 mmol/L (135-145)
[2025-01-25 11:47] LABS: Troponin-I High Sensitivity < 2.7 ng/L (<3.5-17.0)
[2025-01-25 13:56] LABS: Erythrocyte Sedimentation Rate 6 MM/HR (0-20)
[2025-01-26 22:08] LABS: Anti DNA DS Antibody 1 IU/mL; Scleroderma 70 Antibody <1.0 NEG AI (<1.0 NEG)
[2025-01-27 12:54] LABS: Cyclic Citrullinated Peptide <16 UNITS
[2025-01-31 11:59] LABS: Anti Nuclear Antibody Pattern Nuclear, Nucleolar; Anti Nuclear Antibody Screen POSITIVE (NEGATIVE); Anti Nuclear Antibody Titer 1:40 titer
== END 2025-01-25 09:19 | disposition home or self-care (01) ==
LOC: HO.LAB 09:18
PROVIDERS: PCP Physician Assistant Medical; Visit Provider Hospitalist
DX: R07.81 Pleurodynia (principal)
CPT/HCPCS: 36415; 80048; 84484; 85025; 85379; 85652; 86038; 86039; 86200; 86225; 86235

== ENCOUNTER 2025-05-19 10:03 | Outpatient (AMB) | payer OTHER, SELFPAY ==
--- NOTE | 2025-05-19 10:13 | A.OFFVIS_ITS ---
Vital Signs 05/19/25 10:22 Height 5 ft 2 in Weight 141 lb 1.533 oz BMI 25.8 BP 130/60 Blood Pressure Location Lt brachial Position Sitting Pulse 75 Pulse Source Pulse Oximeter Pulse Oximetry (%) 97 Oxygen Delivery Method Room Air Intake Visit Reasons: Dyspnea Balling Head Tender Required: No Accompanied by: Self / Same As Patient Allergies amoxicillin Allergy (Severe, Verified 05/19/25 10:25) Rash flagyl Allergy (Severe, Uncoded 01/25/25 09:24) hives HPI Comments Details: The patient is a 64 year-old woman with known history of asthma in addition to allergies. The patient has followed closely with a local ferryboat deckhand. Her asthma had been in good control. However during the spring season she felt worsening respiratory symptoms. About a month ago she started developing significant chest tightness and wheezing. She was not responding to her respiratory therapy. She did call for advice over we can and she was recommended to go to the ER. She ended up going to the [facility] ER. There she had a chest x-ray that was personally by me. She appeared to have some hyperinflation of the lungs in addition to slight blunting of the right recess. The patient was treated with prednisone and she felt better. She was then placed on Advair and started developing irritation of her mouth. She also developed some ulcerations. So she was switched over to Symbicort 80/4.5 and seems to be tolerating that better. Although she still has concerns. I did provide her with a spacer in the office in order for her to minimize her upper respiratory adverse effects. We also talked about other additional therapy such as singular that she had using the past which will be a steroid sparing agent hopefully allow her to decrease the amount of steroid she is currently taking. The patient has other triggers including reflux disease. She is monitoring closely her diet. She does not like to take too many medications. In addition to that she does have a postnasal drip. She does have nasal sprays at home. 10/10/2022 the patient is here for a pulmonary follow-up visit. Overall she is doing better on the Symbicort. She is also trying to use a spacer. She does not use it all the time. The patient has been exercising regularly. We did review her pulmonary function studies together. She appears to have a mild fixed obstruction suggesting uncontrolled asthma versus the progression to mild COPD. She is a lifelong nonsmoker. The patient has significant small airways disease suggesting the severity of her asthma. On previous blood work she did have some degree of eosinophilia. 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 Based on her degree of obstruction I do believe that adding a long-acting muscarinic antagonist in the morning will help her with her airway obstruction. The patient also should be taking singular. She was questioning the adverse effects. Did reassure her that is well tolerated. She will monitor for any mood changes. 01/12/2023 The patient is here for a pulmonary follow up visit. The patient is complaing of increasing cough and chest tightness. Has been feeling like this for 4-5 days. She almost went to the ED. She has been using her inhalers frequently. The patient does not have a nebulizer. She does not like to take prednisone. Denies any sick contacts. Today she is feeling a little better. Again, we talked about her significant allergies including to mold. She really would be a great candidate for Dupixent with her elevated IgE and eosinophils. i did provide her with imformation. 07/09/2023 the patient is here for pulmonary follow-up visit. The patient is feeling a lot better. Back in January she had an exacerbation or breathing. She would was treated with a course of antibiotics and she felt better. She is not having to use Symbicort every day now. She is back to his baseline. The patient is also taking the singular daily. Respiratory power she does not have any limitations or respiratory them as well. She has no x-rays or laboratories to review. Her eosinophils have been elevated before we talked about potential biologics. But at this point she does not require them. The patient will call if she has any worsening symptoms however. In the meantime her major issue is her significant arthritis. Has a hard time with her neck. She does take IgE for Motrin on a daily basis. I did encourage her not to do so talk to her [facility] doctor about alternatives 11/01/2024 the patient is here for pulmonary follow-up visit have decided chest discomfort. She had a full cardiac workup without any significant findings per the report. She does have a murmur but she is aware of it. The patient also has had a full pulmonary workup. He had a CTA that ruled out blood clots. No significant findings except from some atelectasis at the bases. But right more than left. No pleural-based thickening or no evidence of any pleuritis on the CT scan. 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 She wants to come off the singular which is perfectly fine specially with all the adverse effects that are coming up at this time. She can just stop the medication at this time. Her same seem to be more dermatomal and distribution. We did look at her CT scan demonstrating significant scoliosis in bone spurs especially in the thoracolumbar area. I do believe is likely to be related to radiculopathy resulting in some pain in that area. I will request an MRI this time to better assess the thoracolumbar area and her radiculopathy disease. 11/10/2024 the patient is here for sick visit. She went to [place] she was exposed to sick contact. Sister had sick with sinusitis. Her sister is not taking antibiotics. When she got back she started developing a sore throat then after that developed productive cough with yellowish-green phlegm. Denies any chest tightness or wheezing. She is waiting for the MRI to assess her ongoing back and chest discomfort. In the meantime will send her antibiotics and also a cough suppressant therapy. If the patient is not feeling better she will call for stronger antibiotic over the weekend. 01/25/2025 the patient is here for a pulmonary follow-up visit. The patient overall still complaining of the episodic left-sided chest discomfort. In this case is pleuritic in nature. Moderate to severe. She has a hard time breathing when it happens. She thinks is related to her heart. She did have a cardiac workup and will be following up with Cardiology. She did have an MRI of the thorax and also the lumbar spine. She does have evidence of scoliosis and some degenerative disease. May be resulting in some degree of radicular pain to explain her symptoms. Although she does not feel right now. Also need to consider underlying connective tissue diseases. Will go ahead and have her get blood work at this time. I did have her consider trying Plaquenil as a trial to see if this provides anti-inflammatory effect and she can take this along with her Celebrex. If the patient has any issues she will call. She is going [facility] Will go ahead and follow-up in 4 months if she has any issues prior to that she will call for an earlier assessment. 05/19/2025 the patient is here for pulmonary follow-up visit. Overall the patient has been doing better. She started taking NSAIDs for her chest some back discomfort with some relief. She also continues on the Wixela. She does get hoarseness in addition to thrush from the Wixela. We did talk about considering lowering the dose of the 100 mcg dose. Right now she has plenty of medications so she will use what she has. She will consider switching down if his an issue and she will call. Otherwise she does have the lozenges to use when she does develop thrush. She also rinses and gargles well. She will follow-up with physiatry hopefully for her back issues. Recently she did have an MRI of her cervical spine although she does not have the results as of yet. Will plan to follow-up sometime in the spring. If she has any issues prior to this she will call for an earlier assessment. [facility] Medical History (Updated 01/25/25 @ 09:43 by Naeem Hanna MD) Pleuritic chest pain Back pain Radiculopathy Asthma-COPD overlap syndrome Social History Patient Tobacco Use Status: Never used Tobacco Review of Systems Const Denies chills, Denies fatigue, Denies fever(s), Denies weight gain and Denies weight loss Eyes Denies change in vision ENT Denies dizziness and Reports hoarseness Card Denies chest pain, Denies leg edema, Denies lightheadedness, Denies palpitations, Denies dyspnea on exertion, Denies orthopnea and Denies other Resp Reports cough, Denies dyspnea on exertion and Denies wheezing GI Denies hematochezia and Denies change in stool character Musc Denies abnormal gait, Denies muscle weakness, Denies numbness, Denies radiating pain into limb and Denies tingling Skin/Breast Denies rash Neuro Denies abnormal gait, Denies dizziness, Denies numbness and Denies tingling Endo Denies fatigue and Denies palpitations Aller/Immun Denies wheezing Physical Exam Vital Signs: Last Vital Signs Pulse 75 05/19/25 10:22 BP 130/60 05/19/25 10:22 Pulse Ox 97 05/19/25 10:22 Oxygen Delivery Method Room Air 05/19/25 10:22 BMI result Body Mass Index 25.8 Const General: comfortable HEENT Head: Yes normal to inspection Neck Neck: Yes normal visual inspection and Yes supple Chest Chest palpation & inspection: normal inspection of the chest Resp Effort & Inspection: normal respiratory effort Auscultation: clear to auscultation bilaterally and no wheezes Cardio Rate: regular rate Rhythm: regular rhythm Heart sounds: S1 normal heart sound present, S2 normal heart sound present and Murmur heart sound present systolic II/ and at the base GI Inspection: Yes normal to inspection Skin General skin exam: no rashes or lesions noted Extrem General: Yes no clubbing, cyanosis or edema Assessment & Plan Assessment & Plan (1) Asthma: Code(s): J45.909 - Unspecified asthma, uncomplicated Category: Medical Qualifiers: Asthma complication type: uncomplicated Asthma persistence: persistent Asthma severity: severe Qualified Code(s): J45.50 - Severe persistent asthma, uncomplicated (2) GERD (gastroesophageal reflux disease): Code(s): K21.9 - Gastro-esophageal reflux disease without esophagitis Category: Medical Qualifiers: Esophagitis presence: without esophagitis Qualified Code(s): K21.9 - Gastro-esophageal reflux disease without esophagitis (3) Chronic allergic rhinitis: Code(s): J30.9 - Allergic rhinitis, unspecified Category: Medical (4) Radiculopathy: Code(s): M54.10 - Radiculopathy, site unspecified Category: Medical Qualifiers: Spinal region: thoracolumbar Qualified Code(s): M54.15 - Radiculopathy, thoracolumbar region (5) Back pain: Code(s): M54.9 - Dorsalgia, unspecified Category: Medical Qualifiers: Back pain location: back pain in other location Chronicity: chronic Qualified Code(s): M54.89 - Other dorsalgia; G89.29 - Other chronic pain Plan continue Wixela Nebulizer NSAIDS short-acting beta agonist as needed -Tolerates Xopenex best continue with reflux diet follow-up in 10-12 months Coding Level of Care Code Est Pt Level 4 (51001) Diagnoses Severe persistent asthma without complication J45.50 Asthma complication type: uncomplicated Asthma persistence: persistent Asthma severity: severe Gastroesophageal reflux disease without esophagitis K21.9 Esophagitis presence: without esophagitis Chronic allergic rhinitis J30.9 Radiculopathy of thoracolumbar region M54.15 Spinal region: thoracolumbar Other chronic back pain M54.89; G89.29 Back pain location: back pain in other location Chronicity: chronic Time Spent (min) 16
[2025-05-19 10:22] VITALS: BP 130/60; PULSE 75; O2SAT 97; BMI 25.8
--- OUTSIDE RECORDS SUMMARY | 2025-05-19 11:18 | XMS_ITS | Clinical Summary ---
Author Organization [facility] [employer] Address [address] [place] [address] Phone Care Team Providers Care Oversize Load Pilot Escort Name Role Phone Andree Lindquist Primary Care Provider [phone] Allergies Active Allergy Reactions Criticality Noted Date Comments Albuterol 09/23/2024 Changed to xopenex because of SVT Amoxicillin 01/25/2025 Metronidazole 09/23/2024 Hives/Urticaria Other 09/23/2024 P phenylene diamine positive patch Topical/generalized Sulfamethoxazole-Trimethopri m 09/23/2024 Rash/Dermatitis Theophylline 09/23/2024 Medications cholecalciferol , vitamin D3, (VITAMIN D3 ORAL) Take 1 Tablet by mouth daily. - Oral Active fluticasone propion-salmete roL (ADVAIR DISKUS) 100-50 mcg/dose diskus inhaler Inhale 1 Puff into the lungs 2 times daily. - Inhalation Active levalbuterol (XOPENEX HFA) 45 mcg/actuation inhaler : Inhale 1-2 Puffs into the lungs every 4 hours as needed for Wheezing, Shortness of Breath or Cough. - Inhalation Active LORazepam (ATIVAN) 1 mg tablet Take 1 Tablet by mouth as needed. - Oral Active pantoprazole (PROTONIX) 20 mg EC tablet Take 1 Tablet by mouth daily. - Oral Active dilTIAZem CD (CARDIZEM CD) 240 mg 24 hr capsule Take 1 capsule (240 mg total) by mouth 1 (one) time each day. 90 each 3 4 Active celecoxib (CeleBREX) 200 mg capsule Take 1 capsule (200 mg total) by mouth 1 (one) time each day. Active dilTIAZem CD (CARDIZEM CD) 120 mg 24 hr capsule TAKE 1 CAPSULE BY MOUTH EVERY DAY 90 capsule 2 5 Active Active Problems Problem Noted Date Diagnosed Date Acute bronchitis 09/23/2024 Allergic rhinitis 09/23/2024 Asthma, mild persistent 09/23/2024 Hypertension 09/23/2024 Assessment & Plan (01/25/2025 2:41 PM EST): Orders: ECG 12 lead Intercostal pain 09/23/2024 Palpitations 09/23/2024 Precordial pain 09/23/2024 Assessment & Plan (01/25/2025 2:41 PM EST): Orders: ECG 12 lead PVC's (premature ventricular contractions) 09/23 Assessment & Plan (01/25/2025 2:41 PM EST): Orders: ECG 12 lead SVT (supraventricular tachycardia) ([facility] V24) 09/23/2024 Assessment & Plan (01/25/2025 2:41 PM EST): Orders: ECG 12 lead Surgical History Surgery Date Site/Laterality Comments FOOT SURGERY 05/07/2017 PROCEDURE: HISTORICAL FOOT SURGERY Medical History Medical History Date Comments Allergic rhinitis 11/08/2019 DX:Allergic rh initis Asthma, mild persistent 11/08/2019 DX:Asthm a, mild persistent Hypertension 11/08/2019 DX:Hypertension Social History Tobacco Use Types Packs/Day Years Used Date Smoking Tobacco: Never Smokeless Tobacco: Never Alcohol Use Standard Drinks/Week Comments Not Currently 0 (1 standard drink = 0.6 oz pur e alcohol) Comments Unknown Sex and Gender Information Value Date Recorded Sex Assigned at Not on file Legal Sex Female 10:19 PM EST Gender Identity Not on file Sexual Orientation Not on file Obstetrics History Last Filed Vital Signs Vital Sign Reading Time Taken Comments Blood Pressure 130/80 01/25/2025 1:01 PM EST Pulse 82 01/25/2025 1:01 PM EST Temperature - - Respiratory Rate - - Oxygen Saturation 96% 01/25/2025 1:01 PM EST Inhaled Oxygen Concentration - - Weight 61.6 kg (135 lb 14.4 oz) 01/25/2025 1:01 PM EST Height 158.8 cm (5' 2.5 ) 01/25/2025 1:01 PM EST Body Mass Index 24.46 01/25/2025 1:01 PM EST Plan of Treatment Health Maintenance Due Date Last Done Comments Cervical Cancer Screening: P ap Smear 1982 RSV Immunization Adult Patients (1 - Risk 60-74 years 1-dose series) 2021 Cholesterol Screening (Lipid Panel) 11/02/2022 Colorectal Cancer Screening: Colonoscopy 11/02/2022 Depression Screening 11/02/2022 HIV Screening 11/02/2022 Hepatitis C Screening 11/02/2022 Social Influencers of Health Screening 11/02/2022 DTaP,Tdap,and Td Vaccines (2 - Td or Tdap) 12/01/2023 12/01/2013 Breast Cancer Screening 07/09/2024 07/09/20, 05/14/2021 COVID-19 Vaccine (1 - 2023-2 5 season) 2024 Hypertension/CHF/CAD Annual BMP Blood Test 09/23/2024 Influenza Vaccine (Season Ended) 2025 10/01/2023 Zoster Vaccines Completed 11/17/2019, 09/17/2019 Pneumococcal Vaccine: 50+ Years Completed 12/30/2022 Pneumococcal Vaccine: Pediatrics (0 to 5 Years) and At-Risk Patients (6 to 64 Years) Completed 12/30/2022 HIB Vaccines Aged Out No longer eligi [...] age to complete this topic Meningococcal B Vaccine Aged Out No l onger eligible based on patient's age to complete this topic RSV Immunization Patients Under 20 months Aged Out No longer eligible b ased on patient's age to complete this topic Varicella Vaccines Aged Out No longer eligible based on patient's age to complete this topic Procedures Procedure Name Priority Date/Time Associated Diagnosis Comments [facility] SCREENING DIGITAL Routine 07/09/2022 12:44 PM EDT Encounter for screening mammogram for malignant neoplasm of breast from Last 3 Months or Most Recently Relevant to Health Maintenance Results * [facility] SCREENING DIGITAL (07/09/2022 12:44 PM EDT) Anatomical Region Laterality Modality Mammography 07/09/2022 9:12 AM EDT Narrative 07/09/2022 12:44 PM EDT [facility] Diagnostic Imaging Department [address] [place] [id number] Patient: RONNIESHERRILL /Age/Sex: 1960 - 61 - F Unit#: [id number] Location/Status: SPDIMAM/REG CLI Mnemonic/Ordering Site: [facility] Ordering Physician: RAQUEL BRUMFIELD MD [facility] Screening Digital - 07/09/22947 EXAM: [facility] Screening Digital EXAM DATE AND TIME: 07/09/2022 9:48 AM HISTORY: Screening. Left breast biopsy in 1981, pathology benign. COMPARISON: 05/14/21, 08/18/17, 08/23/14 TECHNIQUE: CC and MLO views of both breasts were obtained using full field digital mammography. Bilateral digital breast tomosynthesis was performed in the MLO projection. Computer aided detection with the Depositphotos.2-H was employed. TISSUE DENSITY: c. The breasts are heterogeneously dense, which may obscure small masses. FINDINGS: No suspicious masses, grouped microcalcifications, or areas of architectural distortion are seen. Benign rim calcifications are again seen. Vascular calcification is present. The skin is unremarkable. IMPRESSION: Stable mammographic appearance of the breasts. No evidence of malignancy is seen. A negative mammogram in the presence of a clinically suspicious palpable abnormality does not preclude the possibility of malignancy or alter the indications for biopsy. BI-RADS: Category 2: Benign RECOMMENDATION(S): 1: Routine screening mammogram BILATERAL in 1 year. [id number], [id number] 3342F, 7025F Dictating Physician: LAVERNE DENNIS MD Electronically Signed by: LAVERNE DENNIS MD Dic Date/Time: 07/09/22 1243 Sign date/Time: 07/09/22 1244 Procedure Note Laverne Dennis MD - 11/20/2022 [facility] Diagnostic Imaging Department [address] [place] [id number] Patient: RONNIESHERRILLRoel HERRMANN D.O.B./Age/Sex: 1960 - 61 - F Unit#: [id number] Location/Status: [facility] Mnemonic/Ordering Site: [facility] Ordering Physician: RAQUEL BRUMFIELD MD [facility] Screening Digital - 07/09/22 - 947 EXAM: [facility] Screening Digital EXAM DATE AND TIME: 07/09/2022 9:48 AM HISTORY: Screening. Left breast biopsy in 1981, pathology benign. COMPARISON: 05/14/21, 08/18/17, 08/23/14 TECHNIQUE: CC and MLO views of both breasts were obtained using fullfield digital mammography. Bilateral digital breast tomosynthesis was performedin the MLO projection. Computer aided detection with the [employer]photos.2-Dapu.comas employed. TISSUE DENSITY: c. The breasts are [...] Routine screening mammogram BILATERAL in 1 year. 59309, [id number] 3342F, 7025F Dictating Physician: LAVERNE DENNIS MD Electronically Signed by: LAVERNE DENNIS MD Dic Date/Time: 07/09/22 1243 Sign date/Time: 07/09/22 1244 Raquel Hylton MD IMG BI PROCEDURES Final Result from Last 3 Months or Most Recently Relevant to Health Maintenance Insurance [employer] Care Teams Oversize Load Pilot Escort Relationship Specialty Start Date End Date Andree Lindquist PA [address] [facility] [facility] [address] [employer] [address] PCP - General 06/07/24
== END 2025-05-19 10:47 | disposition home or self-care (01) ==
LOC: HO.HPS 10:03
PROVIDERS: PCP Physician Assistant Medical; Visit Provider Hospitalist
DX: J45.50 Severe persistent asthma, uncomplicated (principal); K21.9 Gastro-esophageal reflux disease without esophagitis; J30.9 Allergic rhinitis, unspecified; M54.15 Radiculopathy, thoracolumbar region; M54.89 Other dorsalgia; G89.29 Other chronic pain
CPT/HCPCS: 99214

== ENCOUNTER → 2025-05-19 10:03 | Outpatient (BNVA) | payer OTHER, SELFPAY | PROVIDERS: PCP Physician Assistant Medical; Visit Provider Hospitalist | DX: R07.81 Pleurodynia (principal) ==